=== PATIENT | female | born 1975 | race Hispanic/Latino ===

== ENCOUNTER 2018-12-01 10:20 | Outpatient (CLI) | payer BC ==
--- NOTE | 2018-12-01 11:46 | RAD ---
LEFT CLAVICLE TWO VIEWS: History: Left clavicle pain. FINDINGS/IMPRESSION: The left clavicle is intact. POS: H
--- NOTE | 2018-12-01 12:05 | RAD ---
RIGHT CLAVICLE 2 VIEWS: Date: 12/01/18 HISTORY: Other specified disorder of bone. Pain in left clavicle. FINDINGS/IMPRESSION: The right clavicle is intact. POS: [facility]
== END 2018-12-01 10:21 | disposition home or self-care (01) ==
LOC: BICRAD 10:20
PROVIDERS: ATTEND Internal Medicine Rheumatology
DX: M89.8X1 Other specified disorders of bone, shoulder (principal); M89.8X2 Other specified disorders of bone, upper arm

== ENCOUNTER 2018-12-15 09:59 | Outpatient (CLI) | payer BC | END 2018-12-15 10:00 | disposition home or self-care (01) | LOC: BICMAMMO 09:59 | PROVIDERS: ATTEND Family Medicine | DX: Z12.31 Encounter for screening mammogram for malignant neoplasm of breast (principal); R92.1 Mammographic calcification found on diagnostic imaging of breast | CPT/HCPCS: 77063; 77067 ==